=== PATIENT | female | born 1945 | race Caucasian/White ===

== ENCOUNTER 2024-08-01 16:44 | Inpatient (IN) | payer MEDICARE, OTHER ==
[~2024-08-01] VITALS: Ht 170.2 cm; Wt 73.9 kg
[2024-08-01 17:37] LABS: BASOPHILS # (AUTO) 0.1 K/uL (0.0-0.2); BASOPHILS % (AUTO) 0.8 % (0.0-2.0); EOSINOPHILS # (AUTO) 0.1 K/uL (0.0-0.7); HEMATOCRIT 36 % (33-45); HEMOGLOBIN 11.8 g/dL (11.5-14.8); LYMPHOCYTES # (AUTO) 3.4 K/uL (0.8-4.8); LYMPHOCYTES % (AUTO) 26.4 % (20.0-44.0); MEAN CORPUSCULAR HEMOGLOBIN 31 PG (26.0-33.0); MEAN CORPUSCULAR HGB CONC 33 g/dl (31.0-36.0); MEAN CORPUSCULAR VOLUME 95 fL (82-100); MONOCYTES # (AUTO) 1.3 K/uL (0.1-1.30); MONOCYTES % (AUTO) 10.2 % (2.0-12.0); NEUTROPHILS % (AUTO) 61.6 % (43.0-81.0); PLATELET COUNT (AUTO) 575 K/uL (150-450); RED BLOOD CELL COUNT(AUTO) 3.85 MIL/uL (4.0-5.2)
[2024-08-01] MEDS ORDERED: AMLO-212 PO (17:40)
[2024-08-01] MEDS ORDERED: ASPI-1169 PO (17:40)
[2024-08-01] MEDS ORDERED: POLY17PO4 PO (17:40)
[2024-08-01] MEDS ORDERED: ATOR40TA PO (17:40)
[2024-08-01] MEDS ORDERED: ALBU2.5V13 NEB (17:40)
[2024-08-01] MEDS ORDERED: FAMO20TA8 PO (17:40)
[2024-08-01] MEDS ORDERED: LORA-258 PO (17:40)
[2024-08-01] MEDS ORDERED: VALS160T29 PO (17:40)
[2024-08-01] MEDS ORDERED: MULT-213 PO (17:40)
[2024-08-01] MEDS ORDERED: CHLO25TA2 PO (17:40)
[2024-08-01] MEDS ORDERED: ACET325T53 PO (17:40)
[2024-08-01] MEDS ORDERED: TRAM50TA2 PO (17:40)
[2024-08-01] MEDS ORDERED: ACET-73 PO (17:40)
[2024-08-01] MEDS ORDERED: IPRA0.2S49 IH (17:40)
[2024-08-01] MEDS ORDERED: CHOL100043 PO (17:40)
[2024-08-01] MEDS ORDERED: NEBI10TA2 PO (17:40)
[2024-08-01] MEDS ORDERED: COLL30OI TP (17:40)
[2024-08-01] MEDS ORDERED: HYDR-4075 PO (17:40)
[2024-08-01 17:45] LABS: ERYTHROCYTE SEDIMENTATION RATE 74 MM/HR (0-30)
[2024-08-01 17:47] LABS: CALCIUM, SERUM 9.6 mg/dL (8.5-10.1); CREATININE 0.7 mg/dL (0.6-1.3)
[2024-08-01 17:48] LABS: C-REACTIVE PROTEIN 2.36 mg/dL (0.0-0.30)
[2024-08-01 17:52] LABS: INR 1.03 (0.91-1.10); PARTIAL THROMBOPLASTIN TIME 32.1 SEC (24.3-34.3); PROTHROMBIN TIME 10.9 SECS (9.2-11.1)
[2024-08-01] MEDS ORDERED: MAG HYDROX/AL HYDROX/SIMETH 30 ML UDC PO PRN (18:30)
[2024-08-01] MEDS ORDERED: Z GUARD REMEDY 4 OZ OINT TP PRN (18:30)
[2024-08-01] MEDS ORDERED: MAGNESIUM HYDROXIDE 30 ML UDC PO PRN (18:30)
[2024-08-01] MEDS: VANCOMYCIN HCL 1.25 GM in IV D5W 260 ML IV ONE (18:30)
[2024-08-01] MEDS: VANCOMYCIN HCL 1.25 GM in IV D5W 250 ML IV SCH (19:52)
[2024-08-01 20:00] VITALS: BP 141/58; TEMP 98.1; O2SAT 95
[2024-08-01] MEDS: ZOSYN IVPB 3.375 G in IV D5W 50ml IV SCH (21:16)
[2024-08-01] MEDS: ENOXAPARIN SODIUM 40 MG/0.4 ML DISP.SYRIN SQ SCH (21:16)
[2024-08-02] MEDS: IV D5/0.45 NACL 1,000 ML IV PRN (02:07)
[2024-08-02 04:00] VITALS: BP 125/85; TEMP 98.1; O2SAT 93
[2024-08-02 06:52] LABS: CALCIUM, SERUM 9.1 mg/dL (8.5-10.1); CREATININE 0.7 mg/dL (0.6-1.3); MAGNESIUM 1.9 mg/dL (1.8-2.4); PHOSPHORUS 3.6 mg/dL (2.5-4.9); POTASSIUM 3.6 mmol/L (3.5-5.1)
[2024-08-02 06:55] LABS: BASOPHILS # (AUTO) 0.1 K/uL (0.0-0.2); BASOPHILS % (AUTO) 0.4 % (0.0-2.0); EOSINOPHILS # (AUTO) 0.1 K/uL (0.0-0.7); EOSINOPHILS % (AUTO) 0.8 % (0.0-6.0); HEMATOCRIT 36 % (33-45); HEMOGLOBIN 11.8 g/dL (11.5-14.8); LYMPHOCYTES # (AUTO) 3.4 K/uL (0.8-4.8); MEAN CORPUSCULAR HEMOGLOBIN 31 PG (26.0-33.0); MEAN CORPUSCULAR HGB CONC 33 g/dl (31.0-36.0); MEAN CORPUSCULAR VOLUME 94 fL (82-100); MONOCYTES # (AUTO) 1.4 K/uL (0.1-1.30); NEUTROPHILS # (AUTO) 10.3 K/uL (1.8-8.9); NEUTROPHILS % (AUTO) 67.8 % (43.0-81.0); PLATELET COUNT (AUTO) 588 K/uL (150-450); RED BLOOD CELL COUNT(AUTO) 3.81 MIL/uL (4.0-5.2); RED CELL DISTRIBUTION WIDTH 15.7 % (11.5-15.0); WHITE BLOOD COUNT (AUTO) 15.2 K/uL (4.3-11.0)
[2024-08-02 07:28] LABS: THYROID STIMULATING HORMONE 1.24 uIU/mL (0.358-3.74)
[2024-08-02] MEDS: PANTOPRAZOLE 40 MG TABLET.DR PO SCH (07:30)
[2024-08-02] MEDS ORDERED: hydrALAZINE HCL 10 MG TABLET PO PRN (10:30)
[2024-08-02] MEDS ORDERED: ACETAMINOPHEN 325 MG TABLET PO PRN (10:30)
[2024-08-02] MEDS: VANCOMYCIN 750 MG in IV D5W 250 ML IV SCH (11:26)
[2024-08-02] MEDS: ACETAMINOPHEN ES 500 MG TABLET PO SCH (13:00)
[2024-08-02 15:47] LABS: EOSINOPHILS % (MANUAL) 2 % (0-4); LYMPHOCYTES % (MANUAL) 18 % (16-48); MONOCYTES % (MANUAL) 10 % (0-11.0); NEUTROPHILS % (MANUAL) 70 (42-76); PLATELET ESTIMATE INCREASED
[2024-08-02] MEDS: AMLODIPINE BESYLATE 5 MG TABLET PO SCH (17:00)
[2024-08-02] MEDS: METOPROLOL TARTRATE 50 MG TABLET PO SCH (17:00)
[2024-08-02] MEDS: LORAZEPAM 0.5 MG TABLET PO SCH (17:00)
[2024-08-02] MEDS: LOSARTAN POTASSIUM 50 MG TABLET PO SCH (17:00)
[2024-08-02 20:00] VITALS: BP 105/70; TEMP 98.5; O2SAT 95
[2024-08-02] MEDS: ATORVASTATIN 40 MG TABLET PO SCH (22:00)
[2024-08-03] VITALS (13 sets, daily range): BP systolic 120–122; BP diastolic 57–108; TEMP 98.1–99.3; O2SAT 94–99
[2024-08-03] MEDS: ALBUTEROL FS 2.5 MG/0.5 ML VIAL.NEB NEB SCH (01:49)
[2024-08-03] MEDS: CHOLECALCIFEROL 1,000 UNIT TABLET (VIT D3) PO SCH (09:00)
[2024-08-03] MEDS: POLYETHYLENE GLYCOL 3350 17 GM POWD.PACK PO SCH (09:00)
[2024-08-03] MEDS: MULTIVIT W/MINERALS 1 TAB TABLET PO SCH (09:00)
[2024-08-03] MEDS: HYDROCHLOROTHIAZIDE 25 MG TABLET PO SCH (09:00)
[2024-08-03] MEDS: ASPIRIN 81 MG TAB.CHEW PO SCH (09:00)
[2024-08-03] MEDS: THERAHONEY GEL 1.5 OZ TUBE TP SCH (09:09)
[2024-08-03 11:35] LABS: CALCIUM, SERUM 9.4 mg/dL (8.5-10.1); CREATININE 0.8 mg/dL (0.6-1.3); POTASSIUM 3.6 mmol/L (3.5-5.1)
[2024-08-03] MEDS ORDERED: LORAZEPAM 4 MG/ML VIAL IV ONE (17:00)
[2024-08-03] MEDS: OLANZAPINE 10 MG VIAL IM ONE (17:42)
[2024-08-03] MEDS ORDERED: IOHEXOL-350 100 ML VIAL IV ONE (18:36)
[2024-08-03] MEDS: DOXYCYCLINE HYCLATE (100 MG) 100 MG TABLET PO SCH (21:13)
[2024-08-04] VITALS (8 sets, daily range): BP systolic 102–120; BP diastolic 63–75; TEMP 98.2–98.6; O2SAT 93–100
[2024-08-04 07:25] LABS: CALCIUM, SERUM 8.9 mg/dL (8.5-10.1); CREATININE 0.6 mg/dL (0.6-1.3); PHOSPHORUS 3.4 mg/dL (2.5-4.9); POTASSIUM 4.1 mmol/L (3.5-5.1)
[2024-08-04 07:28] LABS: BASOPHILS # (AUTO) 0.1 K/uL (0.0-0.2); BASOPHILS % (AUTO) 0.5 % (0.0-2.0); EOSINOPHILS # (AUTO) 0.1 K/uL (0.0-0.7); EOSINOPHILS % (AUTO) 0.9 % (0.0-6.0); HEMATOCRIT 37 % (33-45); LYMPHOCYTES # (AUTO) 3.5 K/uL (0.8-4.8); LYMPHOCYTES % (AUTO) 29.1 % (20.0-44.0); MEAN CORPUSCULAR HEMOGLOBIN 31 PG (26.0-33.0); MEAN CORPUSCULAR HGB CONC 32 g/dl (31.0-36.0); MEAN CORPUSCULAR VOLUME 96 fL (82-100); MONOCYTES # (AUTO) 1.7 K/uL (0.1-1.30); MONOCYTES % (AUTO) 13.6 % (2.0-12.0); NEUTROPHILS # (AUTO) 6.8 K/uL (1.8-8.9); NEUTROPHILS % (AUTO) 55.9 % (43.0-81.0); PLATELET COUNT (AUTO) 530 K/uL (150-450); RED BLOOD CELL COUNT(AUTO) 3.89 MIL/uL (4.0-5.2); RED CELL DISTRIBUTION WIDTH 16.3 % (11.5-15.0); WHITE BLOOD COUNT (AUTO) 12.2 K/uL (4.3-11.0)
[2024-08-04] MEDS: ENSURE ENLIVE 237 ML LIQUID (VANILLA) PO SCH (17:00)
[2024-08-05] VITALS (11 sets, daily range): BP systolic 109–125; BP diastolic 59–62; TEMP 97.2–97.7; O2SAT 93–100
[2024-08-05 06:44] LABS: BASOPHILS # (AUTO) 0.1 K/uL (0.0-0.2); BASOPHILS % (AUTO) 0.5 % (0.0-2.0); EOSINOPHILS # (AUTO) 0.1 K/uL (0.0-0.7); EOSINOPHILS % (AUTO) 0.7 % (0.0-6.0); HEMATOCRIT 36 % (33-45); HEMOGLOBIN 11.7 g/dL (11.5-14.8); LYMPHOCYTES # (AUTO) 3.5 K/uL (0.8-4.8); LYMPHOCYTES % (AUTO) 25.1 % (20.0-44.0); MEAN CORPUSCULAR HEMOGLOBIN 32 PG (26.0-33.0); MEAN CORPUSCULAR HGB CONC 33 g/dl (31.0-36.0); MEAN CORPUSCULAR VOLUME 96 fL (82-100); MONOCYTES # (AUTO) 1.5 K/uL (0.1-1.30); MONOCYTES % (AUTO) 10.8 % (2.0-12.0); NEUTROPHILS # (AUTO) 8.9 K/uL (1.8-8.9); NEUTROPHILS % (AUTO) 62.9 % (43.0-81.0); PLATELET COUNT (AUTO) 536 K/uL (150-450); RED BLOOD CELL COUNT(AUTO) 3.71 MIL/uL (4.0-5.2); RED CELL DISTRIBUTION WIDTH 16.3 % (11.5-15.0); WHITE BLOOD COUNT (AUTO) 14.1 K/uL (4.3-11.0)
[2024-08-05 08:28] LABS: CALCIUM, SERUM 9.1 mg/dL (8.5-10.1); CREATININE 0.7 mg/dL (0.6-1.3); PHOSPHORUS 3.9 mg/dL (2.5-4.9); POTASSIUM 3.9 mmol/L (3.5-5.1)
[2024-08-05] MEDS: IPRATROPIUM NEB FS 0.5 MG/2.5 ML AMPUL.NEB IH PRN (09:17)
[2024-08-06] VITALS (14 sets, daily range): BP systolic 91–125; BP diastolic 62–69; TEMP 97.2–98.6; O2SAT 95–100
[2024-08-06 06:36] LABS: CALCIUM, SERUM 9.1 mg/dL (8.5-10.1); CREATININE 0.9 mg/dL (0.6-1.3); PHOSPHORUS 2.8 mg/dL (2.5-4.9)
[2024-08-06 06:37] LABS: BASOPHILS # (AUTO) 0.1 K/uL (0.0-0.2); BASOPHILS % (AUTO) 0.7 % (0.0-2.0); EOSINOPHILS # (AUTO) 0.2 K/uL (0.0-0.7); EOSINOPHILS % (AUTO) 1.3 % (0.0-6.0); HEMATOCRIT 35 % (33-45); HEMOGLOBIN 11.8 g/dL (11.5-14.8); LYMPHOCYTES % (AUTO) 24.7 % (20.0-44.0); MEAN CORPUSCULAR HEMOGLOBIN 32 PG (26.0-33.0); MEAN CORPUSCULAR HGB CONC 33 g/dl (31.0-36.0); MEAN CORPUSCULAR VOLUME 97 fL (82-100); MONOCYTES # (AUTO) 1.6 K/uL (0.1-1.30); MONOCYTES % (AUTO) 13.2 % (2.0-12.0); NEUTROPHILS # (AUTO) 7.3 K/uL (1.8-8.9); NEUTROPHILS % (AUTO) 60.1 % (43.0-81.0); PLATELET COUNT (AUTO) 453 K/uL (150-450); RED BLOOD CELL COUNT(AUTO) 3.64 MIL/uL (4.0-5.2); RED CELL DISTRIBUTION WIDTH 16.1 % (11.5-15.0); WHITE BLOOD COUNT (AUTO) 12.1 K/uL (4.3-11.0)
[2024-08-06] MEDS: POTASSIUM CHLORIDE 20 MEQ TAB.PRT.SR PO SCH (10:15)
[2024-08-06 12:03] LABS: LYMPHOCYTES % (MANUAL) 21 % (16-48); MONOCYTES % (MANUAL) 6 % (0-11.0); NEUTROPHILS % (MANUAL) 73 (42-76); PLATELET ESTIMATE INCREASED
[2024-08-06] MEDS: TRAMADOL HCL 50 MG TABLET PO PRN (21:27)
[2024-08-07] VITALS (17 sets, daily range): BP systolic 91–121; BP diastolic 50–78; TEMP 97.9–99.3; O2SAT 94–100
[2024-08-07 06:45] LABS: BASOPHILS # (AUTO) 0.1 K/uL (0.0-0.2); BASOPHILS % (AUTO) 0.8 % (0.0-2.0); EOSINOPHILS # (AUTO) 0.2 K/uL (0.0-0.7); EOSINOPHILS % (AUTO) 1.2 % (0.0-6.0); HEMATOCRIT 33 % (33-45); LYMPHOCYTES # (AUTO) 3.1 K/uL (0.8-4.8); LYMPHOCYTES % (AUTO) 23.2 % (20.0-44.0); MEAN CORPUSCULAR HEMOGLOBIN 32 PG (26.0-33.0); MEAN CORPUSCULAR HGB CONC 34 g/dl (31.0-36.0); MEAN CORPUSCULAR VOLUME 95 fL (82-100); MONOCYTES # (AUTO) 1.5 K/uL (0.1-1.30); MONOCYTES % (AUTO) 11.1 % (2.0-12.0); NEUTROPHILS # (AUTO) 8.5 K/uL (1.8-8.9); NEUTROPHILS % (AUTO) 63.7 % (43.0-81.0); PLATELET COUNT (AUTO) 469 K/uL (150-450); RED BLOOD CELL COUNT(AUTO) 3.47 MIL/uL (4.0-5.2); WHITE BLOOD COUNT (AUTO) 13.4 K/uL (4.3-11.0)
[2024-08-07 07:05] LABS: CALCIUM, SERUM 8.9 mg/dL (8.5-10.1); CREATININE 0.7 mg/dL (0.6-1.3); MAGNESIUM 1.8 mg/dL (1.8-2.4); PHOSPHORUS 2.7 mg/dL (2.5-4.9); POTASSIUM 3.1 mmol/L (3.5-5.1)
[2024-08-07] MEDS: POTASSIUM CHLORIDE 20 MEQ TAB.PRT.SR PO SCH (10:31)
[2024-08-07] MEDS: PROSOURCE / PROSTAT (PYXIS) 30 ML UDC PO SCH (17:00)
[2024-08-07] MEDS: ACETAMINOPHEN 325 MG TABLET PO PRN (18:29)
[2024-08-07] MEDS: ALBUTEROL FS 2.5 MG/0.5 ML VIAL.NEB NEB SCH (23:35)
[2024-08-08] VITALS (17 sets, daily range): BP systolic 109–116; BP diastolic 60–94; TEMP 97.7–98.8; O2SAT 93–100
[2024-08-08 07:30] LABS: BASOPHILS # (AUTO) 0.1 K/uL (0.0-0.2); BASOPHILS % (AUTO) 0.6 % (0.0-2.0); EOSINOPHILS # (AUTO) 0.2 K/uL (0.0-0.7); EOSINOPHILS % (AUTO) 2.2 % (0.0-6.0); HEMATOCRIT 32 % (33-45); HEMOGLOBIN 10.8 g/dL (11.5-14.8); LYMPHOCYTES # (AUTO) 3.8 K/uL (0.8-4.8); LYMPHOCYTES % (AUTO) 33.1 % (20.0-44.0); MEAN CORPUSCULAR HEMOGLOBIN 32 PG (26.0-33.0); MEAN CORPUSCULAR HGB CONC 33 g/dl (31.0-36.0); MEAN CORPUSCULAR VOLUME 95 fL (82-100); MONOCYTES # (AUTO) 1.3 K/uL (0.1-1.30); NEUTROPHILS % (AUTO) 53.1 % (43.0-81.0); PLATELET COUNT (AUTO) 485 K/uL (150-450); RED BLOOD CELL COUNT(AUTO) 3.39 MIL/uL (4.0-5.2); RED CELL DISTRIBUTION WIDTH 16.1 % (11.5-15.0); WHITE BLOOD COUNT (AUTO) 11.4 K/uL (4.3-11.0)
[2024-08-08 07:44] LABS: INR 1.05 (0.91-1.10); PROTHROMBIN TIME 11.1 SECS (9.2-11.1)
[2024-08-08 07:50] LABS: CREATININE 0.6 mg/dL (0.6-1.3); POTASSIUM 3.5 mmol/L (3.5-5.1)
[2024-08-08 08:07] LABS: MAGNESIUM 1.7 mg/dL (1.8-2.4); PHOSPHORUS 3.2 mg/dL (2.5-4.9)
[2024-08-08] MEDS: HYDROMORPHONE 1 MG/1 ML DISP.SYRIN IV PRN (09:21)
[2024-08-08] MEDS: Magnesium 1GM/D5W 100ML PREMIX 100 ML IV SCH (14:14)
[2024-08-08] MEDS: ONDANSETRON HCL/PF 4 MG/2 ML VIAL IVP PRN (16:50)
[2024-08-09] VITALS (13 sets, daily range): BP systolic 90–132; BP diastolic 60–100; TEMP 98.5–98.8; O2SAT 92–97
[2024-08-09 06:56] LABS: BASOPHILS # (AUTO) 0.1 K/uL (0.0-0.2); BASOPHILS % (AUTO) 0.6 % (0.0-2.0); EOSINOPHILS # (AUTO) 0.2 K/uL (0.0-0.7); EOSINOPHILS % (AUTO) 1.7 % (0.0-6.0); HEMATOCRIT 32 % (33-45); HEMOGLOBIN 10.6 g/dL (11.5-14.8); LYMPHOCYTES % (AUTO) 28.4 % (20.0-44.0); MEAN CORPUSCULAR HEMOGLOBIN 32 PG (26.0-33.0); MEAN CORPUSCULAR HGB CONC 33 g/dl (31.0-36.0); MEAN CORPUSCULAR VOLUME 96 fL (82-100); MONOCYTES # (AUTO) 1.4 K/uL (0.1-1.30); MONOCYTES % (AUTO) 9.9 % (2.0-12.0); NEUTROPHILS # (AUTO) 8.4 K/uL (1.8-8.9); NEUTROPHILS % (AUTO) 59.4 % (43.0-81.0); PLATELET COUNT (AUTO) 511 K/uL (150-450); RED BLOOD CELL COUNT(AUTO) 3.35 MIL/uL (4.0-5.2); RED CELL DISTRIBUTION WIDTH 16.2 % (11.5-15.0); WHITE BLOOD COUNT (AUTO) 14.1 K/uL (4.3-11.0)
[2024-08-09 07:29] LABS: CALCIUM, SERUM 9.4 mg/dL (8.5-10.1); CREATININE 0.8 mg/dL (0.6-1.3); POTASSIUM 3.7 mmol/L (3.5-5.1)
[2024-08-09] MEDS: ENSURE ENLIVE 237 ML LIQUID (VANILLA) PO SCH (13:33)
[2024-08-09 16:13] LABS: APPEARANCE,URINE CLEAR (CLEAR); BILIRUBIN,URINE NEGATIVE (NEGATIVE); BLOOD, URINE TRACE-INTA Ery/uL (NEGATIVE); COLOR,URINE YELLOW (YELLOW); KETONES,URINE NEGATIVE (NEGATIVE); LEUKOCYTE ESTERASE ,URINE 1+ (NEGATIVE); NITRITE, URINE NEGATIVE (NEGATIVE); PROTEIN,URINE 2+ mg/dl (NEGATIVE); UGLUCOSE NEGATIVE (NEGATIVE); UROBILINOGEN,URINE 0.2 EU/dL (0.2)
[2024-08-09 16:23] LABS: ADD URINE CULTURE YES; BACTERIA,URINE 1+ /HPF (None Seen); SQUAMOUS EPITHELIAL CELL,UR 0-2 /HPF (None Seen); URINE AMORPHOUS URATE Few /HPF (None Seen); YEAST,URINE Many /HPF (None Seen)
[2024-08-09 16:24] LABS: CALCIUM OXALATE CRYSTALS,UR Few /HPF (None Seen); HYALINE CASTS, URINE Few /LPF (None Seen)
[2024-08-10] VITALS (8 sets, daily range): BP systolic 91–130; BP diastolic 55–65; TEMP 98.1–99.3; O2SAT 93–98
[2024-08-10 08:05] LABS: BASOPHILS # (AUTO) 0.1 K/uL (0.0-0.2); BASOPHILS % (AUTO) 0.4 % (0.0-2.0); EOSINOPHILS # (AUTO) 0.2 K/uL (0.0-0.7); EOSINOPHILS % (AUTO) 1.3 % (0.0-6.0); HEMATOCRIT 33 % (33-45); HEMOGLOBIN 10.7 g/dL (11.5-14.8); LYMPHOCYTES # (AUTO) 3.5 K/uL (0.8-4.8); LYMPHOCYTES % (AUTO) 22.9 % (20.0-44.0); MEAN CORPUSCULAR HEMOGLOBIN 32 PG (26.0-33.0); MEAN CORPUSCULAR HGB CONC 33 g/dl (31.0-36.0); MEAN CORPUSCULAR VOLUME 96 fL (82-100); MONOCYTES # (AUTO) 1.5 K/uL (0.1-1.30); MONOCYTES % (AUTO) 9.9 % (2.0-12.0); NEUTROPHILS % (AUTO) 65.5 % (43.0-81.0); PLATELET COUNT (AUTO) 496 K/uL (150-450); RED BLOOD CELL COUNT(AUTO) 3.41 MIL/uL (4.0-5.2); RED CELL DISTRIBUTION WIDTH 16.4 % (11.5-15.0); WHITE BLOOD COUNT (AUTO) 15.2 K/uL (4.3-11.0)
[2024-08-10 08:06] LABS: INR 1.03 (0.91-1.10); PARTIAL THROMBOPLASTIN TIME 31.9 SEC (24.3-34.3); PROTHROMBIN TIME 10.9 SECS (9.2-11.1)
[2024-08-10 08:12] LABS: CREATININE 0.7 mg/dL (0.6-1.3); POTASSIUM 3.8 mmol/L (3.5-5.1)
[2024-08-10] MEDS: AMLODIPINE BESYLATE 5 MG TABLET PO SCH (09:00)
[2024-08-10] MEDS ORDERED: IODIXANOL 150 ML IV ONE (12:05)
[2024-08-10] MEDS ORDERED: LIDOCAINE HCL/MPF 1% 30 ML VIAL IJ ONE (12:06)
[2024-08-10] MEDS ORDERED: MIDAZOLAM HCL 2 MG/2ML VIAL ONE (12:53)
[2024-08-10] MEDS ORDERED: FENTANYL PF 100MCG/2ML AMPUL ONE (12:53)
[2024-08-10] MEDS ORDERED: diphenhydrAMINE HCL 50 MG/ML VIAL ONE (13:02)
[2024-08-11 04:00] VITALS: BP 125/56; TEMP 98.4; O2SAT 97
[2024-08-11 07:07] LABS: BASOPHILS # (AUTO) 0.1 K/uL (0.0-0.2); BASOPHILS % (AUTO) 0.6 % (0.0-2.0); EOSINOPHILS # (AUTO) 0.2 K/uL (0.0-0.7); EOSINOPHILS % (AUTO) 1.4 % (0.0-6.0); HEMATOCRIT 33 % (33-45); HEMOGLOBIN 10.6 g/dL (11.5-14.8); LYMPHOCYTES # (AUTO) 3.3 K/uL (0.8-4.8); LYMPHOCYTES % (AUTO) 30.4 % (20.0-44.0); MEAN CORPUSCULAR HEMOGLOBIN 31 PG (26.0-33.0); MEAN CORPUSCULAR HGB CONC 33 g/dl (31.0-36.0); MEAN CORPUSCULAR VOLUME 96 fL (82-100); MONOCYTES # (AUTO) 1.1 K/uL (0.1-1.30); MONOCYTES % (AUTO) 10.3 % (2.0-12.0); NEUTROPHILS # (AUTO) 6.2 K/uL (1.8-8.9); NEUTROPHILS % (AUTO) 57.3 % (43.0-81.0); PLATELET COUNT (AUTO) 463 K/uL (150-450); RED BLOOD CELL COUNT(AUTO) 3.38 MIL/uL (4.0-5.2); RED CELL DISTRIBUTION WIDTH 16.6 % (11.5-15.0); WHITE BLOOD COUNT (AUTO) 10.8 K/uL (4.3-11.0)
[2024-08-11 07:28] LABS: CALCIUM, SERUM 8.7 mg/dL (8.5-10.1); CREATININE 0.6 mg/dL (0.6-1.3); POTASSIUM 3.7 mmol/L (3.5-5.1)
[2024-08-11 07:34] VITALS: O2SAT 99
[2024-08-11 08:00] VITALS: BP 123/62; TEMP 98.7; O2SAT 99
[2024-08-11 16:00] VITALS: BP 121/66; TEMP 98.6; O2SAT 98
[2024-08-11] MEDS: ENSURE ENLIVE CHOC 237 ML CAN PO SCH (17:00)
[2024-08-11 19:09] VITALS: O2SAT 97
[2024-08-11 20:00] VITALS: BP 119/53; TEMP 99.1; O2SAT 96
[2024-08-11] MEDS: LORAZEPAM 1 MG TABLET PO ONE (20:53)
[2024-08-11] MEDS: MIRTAZAPINE 15 MG TABLET PO SCH (21:26)
[2024-08-12] VITALS (8 sets, daily range): BP systolic 106–148; BP diastolic 66–100; TEMP 98.1–98.9; O2SAT 95–100
[2024-08-12 07:08] LABS: BASOPHILS # (AUTO) 0.1 K/uL (0.0-0.2); BASOPHILS % (AUTO) 0.6 % (0.0-2.0); EOSINOPHILS # (AUTO) 0.2 K/uL (0.0-0.7); EOSINOPHILS % (AUTO) 1.7 % (0.0-6.0); HEMATOCRIT 31 % (33-45); HEMOGLOBIN 10.1 g/dL (11.5-14.8); LYMPHOCYTES # (AUTO) 3.5 K/uL (0.8-4.8); LYMPHOCYTES % (AUTO) 31.8 % (20.0-44.0); MEAN CORPUSCULAR HEMOGLOBIN 32 PG (26.0-33.0); MEAN CORPUSCULAR HGB CONC 33 g/dl (31.0-36.0); MEAN CORPUSCULAR VOLUME 96 fL (82-100); MONOCYTES # (AUTO) 1.2 K/uL (0.1-1.30); MONOCYTES % (AUTO) 11.1 % (2.0-12.0); NEUTROPHILS # (AUTO) 6.1 K/uL (1.8-8.9); NEUTROPHILS % (AUTO) 54.8 % (43.0-81.0); PLATELET COUNT (AUTO) 423 K/uL (150-450); RED BLOOD CELL COUNT(AUTO) 3.18 MIL/uL (4.0-5.2); RED CELL DISTRIBUTION WIDTH 16.6 % (11.5-15.0)
[2024-08-12 07:29] LABS: CALCIUM, SERUM 8.5 mg/dL (8.5-10.1); CREATININE 0.5 mg/dL (0.6-1.3); POTASSIUM 3.5 mmol/L (3.5-5.1)
[2024-08-12] MEDS ORDERED: TRAMADOL HCL 50 MG TABLET PO PRN (13:30)
[2024-08-12] MEDS: QUETIAPINE FUMARATE 25 MG TABLET PO SCH (17:10)
[2024-08-12] MEDS: ZOLPIDEM TARTRATE 5 MG TABLET PO PRN (20:58)
[2024-08-12] MEDS ORDERED: MICAFUNGIN SODIUM 100 MG VIAL IV ONE (22:36)
[2024-08-12] MEDS: MICAFUNGIN SODIUM 100 MG in IV NS 0.9% 100 ML IV SCH (22:38)
[2024-08-13] VITALS (18 sets, daily range): BP systolic 92–158; BP diastolic 55–99; TEMP 97.8–99; O2SAT 90–100
[2024-08-13 06:41] LABS: BASOPHILS # (AUTO) 0.1 K/uL (0.0-0.2); BASOPHILS % (AUTO) 1.2 % (0.0-2.0); EOSINOPHILS # (AUTO) 0.4 K/uL (0.0-0.7); EOSINOPHILS % (AUTO) 3.4 % (0.0-6.0); HEMATOCRIT 33 % (33-45); HEMOGLOBIN 10.8 g/dL (11.5-14.8); LYMPHOCYTES # (AUTO) 3.7 K/uL (0.8-4.8); MEAN CORPUSCULAR HEMOGLOBIN 31 PG (26.0-33.0); MEAN CORPUSCULAR HGB CONC 33 g/dl (31.0-36.0); MEAN CORPUSCULAR VOLUME 95 fL (82-100); MONOCYTES # (AUTO) 1.1 K/uL (0.1-1.30); MONOCYTES % (AUTO) 10.1 % (2.0-12.0); NEUTROPHILS # (AUTO) 5.6 K/uL (1.8-8.9); NEUTROPHILS % (AUTO) 51.3 % (43.0-81.0); PLATELET COUNT (AUTO) 459 K/uL (150-450); RED BLOOD CELL COUNT(AUTO) 3.45 MIL/uL (4.0-5.2); RED CELL DISTRIBUTION WIDTH 16.9 % (11.5-15.0); WHITE BLOOD COUNT (AUTO) 10.9 K/uL (4.3-11.0)
[2024-08-13 07:16] LABS: CALCIUM, SERUM 8.6 mg/dL (8.5-10.1); CREATININE 0.6 mg/dL (0.6-1.3); POTASSIUM 3.6 mmol/L (3.5-5.1)
[2024-08-13 10:15] LABS: INR 1.04 (0.91-1.10)
[2024-08-13] MEDS ORDERED: ANESTHESIA TRAY IN PYXIS 1 EA TRAY MC ONE ×2 (12:44→16:04)
[2024-08-13] MEDS ORDERED: IV NS 0.9% 500 ML IV ONE (13:08)
[2024-08-13] MEDS ORDERED: IODIXANOL 150 ML IV ONE (13:09)
[2024-08-13] MEDS ORDERED: LIDOCAINE HCL/MPF 1% 30 ML VIAL IJ ONE (13:09)
[2024-08-13] MEDS ORDERED: IV SET PRIMARY PUMP SET 1 EA INFUS.SET MC ONE (13:09)
[2024-08-13] MEDS ORDERED: LIDOCAINE HCL/PF 1% 30 ML SDV ONE (13:59)
[2024-08-13] MEDS ORDERED: MIDAZOLAM HCL 2 MG/2ML VIAL ONE (14:01)
[2024-08-13] MEDS ORDERED: FENTANYL PF 100MCG/2ML AMPUL ONE (14:01)
[2024-08-13] MEDS ORDERED: HEPARIN SODIUM, PORCINE 5000 UNITS/1 ML VIAL ONE (14:36)
[2024-08-13] MEDS ORDERED: HEPARIN SODIUM, PORCINE 1,000 UNIT/ML VIAL ONE ×2 (14:36→14:55)
[2024-08-13] MEDS: IV NS 0.9% 1,000 ML BAG IV ONE (18:22)
[2024-08-13] MEDS: LOSARTAN POTASSIUM 50 MG TABLET PO SCH (20:52)
[2024-08-13] MEDS: CLOPIDOGREL BISULFATE 300 MG TABLET PO ONE (20:53)
[2024-08-13] MEDS: METOPROLOL TARTRATE 50 MG TABLET PO SCH (20:53)
[2024-08-13] MEDS: QUETIAPINE FUMARATE 25 MG TABLET PO SCH (20:54)
[2024-08-13] MEDS: LORAZEPAM 0.5 MG TABLET PO SCH (20:55)
[2024-08-14] VITALS (35 sets, daily range): BP systolic 62–137; BP diastolic 38–81; TEMP 98–99; O2SAT 90–99
[2024-08-14 04:12] LABS: BASOPHILS # (AUTO) 0.1 K/uL (0.0-0.2); BASOPHILS % (AUTO) 0.6 % (0.0-2.0); EOSINOPHILS # (AUTO) 0.1 K/uL (0.0-0.7); EOSINOPHILS % (AUTO) 0.5 % (0.0-6.0); HEMATOCRIT 29 % (33-45); HEMOGLOBIN 9.6 g/dL (11.5-14.8); LYMPHOCYTES # (AUTO) 2.8 K/uL (0.8-4.8); LYMPHOCYTES % (AUTO) 23.2 % (20.0-44.0); MEAN CORPUSCULAR HEMOGLOBIN 32 PG (26.0-33.0); MEAN CORPUSCULAR HGB CONC 33 g/dl (31.0-36.0); MEAN CORPUSCULAR VOLUME 96 fL (82-100); MONOCYTES # (AUTO) 1.3 K/uL (0.1-1.30); MONOCYTES % (AUTO) 10.3 % (2.0-12.0); NEUTROPHILS % (AUTO) 65.4 % (43.0-81.0); PLATELET COUNT (AUTO) 400 K/uL (150-450); RED BLOOD CELL COUNT(AUTO) 2.99 MIL/uL (4.0-5.2); RED CELL DISTRIBUTION WIDTH 16.5 % (11.5-15.0); WHITE BLOOD COUNT (AUTO) 12.1 K/uL (4.3-11.0)
[2024-08-14 04:21] LABS: CALCIUM, SERUM 8.3 mg/dL (8.5-10.1); CREATININE 0.6 mg/dL (0.6-1.3); POTASSIUM 3.2 mmol/L (3.5-5.1)
[2024-08-14 04:25] LABS: MAGNESIUM 1.8 mg/dL (1.8-2.4); PHOSPHORUS 3.6 mg/dL (2.5-4.9)
[2024-08-14] MEDS: PANTOPRAZOLE 40 MG TABLET.DR PO SCH (09:00)
[2024-08-14] MEDS ORDERED: ASPIRIN 81 MG TAB.CHEW PO SCH (09:00)
[2024-08-14] MEDS: CLOPIDOGREL BISULFATE 75 MG TABLET PO SCH (09:00)
[2024-08-14] MEDS: POTASSIUM CHLORIDE 20 MEQ TAB.PRT.SR PO SCH (09:30)
[2024-08-14] MEDS: ENOXAPARIN SODIUM 40 MG/0.4 ML DISP.SYRIN SQ SCH (17:52)
[2024-08-15] VITALS: BP 137/74; TEMP 98.8; O2SAT 98
[2024-08-15 04:00] VITALS: BP 125/74; TEMP 98.2; O2SAT 97
[2024-08-15 07:13] LABS: BASOPHILS # (AUTO) 0.1 K/uL (0.0-0.2); BASOPHILS % (AUTO) 0.7 % (0.0-2.0); EOSINOPHILS # (AUTO) 0.2 K/uL (0.0-0.7); EOSINOPHILS % (AUTO) 1.7 % (0.0-6.0); HEMATOCRIT 31 % (33-45); HEMOGLOBIN 10.4 g/dL (11.5-14.8); LYMPHOCYTES # (AUTO) 3.3 K/uL (0.8-4.8); MEAN CORPUSCULAR HEMOGLOBIN 32 PG (26.0-33.0); MEAN CORPUSCULAR HGB CONC 34 g/dl (31.0-36.0); MEAN CORPUSCULAR VOLUME 95 fL (82-100); MONOCYTES # (AUTO) 1.1 K/uL (0.1-1.30); MONOCYTES % (AUTO) 10.3 % (2.0-12.0); NEUTROPHILS # (AUTO) 5.9 K/uL (1.8-8.9); NEUTROPHILS % (AUTO) 56.3 % (43.0-81.0); PLATELET COUNT (AUTO) 427 K/uL (150-450); RED BLOOD CELL COUNT(AUTO) 3.22 MIL/uL (4.0-5.2); RED CELL DISTRIBUTION WIDTH 16.9 % (11.5-15.0); WHITE BLOOD COUNT (AUTO) 10.5 K/uL (4.3-11.0)
[2024-08-15 07:30] VITALS: O2SAT 99
[2024-08-15 07:34] LABS: ALBUMIN 1.9 g/dL (3.4-5.0); BILIRUBIN,TOTAL 0.4 mg/dL (0.2-1.0); CALCIUM, SERUM 8.7 mg/dL (8.5-10.1); CREATININE 0.6 mg/dL (0.6-1.3); MAGNESIUM 1.8 mg/dL (1.8-2.4); PHOSPHORUS 3.1 mg/dL (2.5-4.9); POTASSIUM 3.3 mmol/L (3.5-5.1); TOTAL PROTEIN, SERUM 5.2 g/dL (6.4-8.2)
[2024-08-15 07:41] VITALS: O2SAT 100
[2024-08-15 08:00] VITALS: BP 141/84; TEMP 98.3; O2SAT 97
[2024-08-15] MEDS: POTASSIUM CHLORIDE 20 MEQ TAB.PRT.SR PO SCH (10:53)
[2024-08-15 12:00] VITALS: BP 123/59; TEMP 98.5; O2SAT 97
== END 2024-08-15 16:21 | DRG 270 ==
LOC: ER 17:05 → MEDSG1 17:46 → ICU 08-13 16:04 → TELE1 08-14 13:02 → MEDSG1 08-15 11:57
PROVIDERS: ADMIT Student in an Organized Health Care Education/Training Program
PROC: B44LZZZ Ultrasonography of Femoral Artery (ICD-10-PCS; principal; 2024-08-13)
PROC: 04CL3ZZ Extirpation of Matter from Left Femoral Artery, Percutaneous Approach (ICD-10-PCS; 2024-08-13)
PROC: 047L3ZZ Dilation of Left Femoral Artery, Percutaneous Approach (ICD-10-PCS; 2024-08-13)
PROC: B410YZZ Fluoroscopy of Abdominal Aorta using Other Contrast (ICD-10-PCS; 2024-08-13)
DX: I70.268 Atherosclerosis of native arteries of extremities with gangrene, other extremity (principal); G93.41 Metabolic encephalopathy; F03.94 Unspecified dementia, unspecified severity, with anxiety; L03.116 Cellulitis of left lower limb; B37.49 Other urogenital candidiasis; D75.839 Thrombocytosis, unspecified; L97.529 Non-pressure chronic ulcer of other part of left foot with unspecified severity; M19.90 Unspecified osteoarthritis, unspecified site; E78.5 Hyperlipidemia, unspecified; F41.9 Anxiety disorder, unspecified; Z79.51 Long term (current) use of inhaled steroids; Z79.82 Long term (current) use of aspirin; E87.6 Hypokalemia; G89.4 Chronic pain syndrome; I10 Essential (primary) hypertension; J44.9 Chronic obstructive pulmonary disease, unspecified
CPT/HCPCS: 36415; 71045-TC; 73630-TC; 75625; 75630-TC; 80048-TC; 80053-TC; 80202-TC; 81001; 82962-TC; 83735-TC; 84100-TC; 84443-TC; 85025-TC; 85347; 85610-TC; 85652-TC; 85730-TC; 86140-TC; 87040-TC; 87081-TC; 87086-TC; 92526; 92611-TC; 93926-TC; 93971-TC; 94760-TC; 94762-TC; 94799-TC; A4223; C1894; G0378; J0690; J1171; J1200; J1644; J1650; J2248; J2250; J2405; J2543; J2704; J3010; J3371; J3475; J3490; J7030; J7040; J7050; J7060; Q9967

== ENCOUNTER 2025-03-05 15:13 | Inpatient (IN) | payer MEDICARE, OTHER ==
[~2025-03-05] VITALS: Ht 170.2 cm; Wt 66.7 kg
[~2025-03-05 15:13] MED LIST: ACET-73 PO; ACET325T53 PO; ALBU2.5V13 NEB; AMLO-212 PO; ASPI-1169 PO; ATOR40TA PO; CHLO25TA2 PO; CHOL100043 PO; COLL30OI TP; FAMO20TA8 PO; HYDR-4075 PO; IPRA0.2S49 IH; LORA-258 PO; MULT-213 PO; NEBI10TA2 PO; POLY17PO4 PO; TRAM50TA2 PO; VALS160T29 PO
[2025-03-05 15:59] LABS: CALCIUM, SERUM 8.2 mg/dL (8.5-10.1); CREATININE 0.6 mg/dL (0.6-1.3); SODIUM SERUM 141 mmol/L (136-145); UREA NITROGEN, BLOOD 24 mg/dL (7-18)
[2025-03-05 16:09] LABS: PLATELET COUNT (AUTO) 462 K/uL (150-450); RED BLOOD CELL COUNT(AUTO) 3.94 MIL/uL (4.0-5.2); RED CELL DISTRIBUTION WIDTH 20.2 % (11.5-15.0); WHITE BLOOD COUNT (AUTO) 11.7 K/uL (4.3-11.0)
[2025-03-05] MEDS ORDERED: LOSA100T31 PO (16:10)
[2025-03-05] MEDS ORDERED: METO50TA16 PO (16:10)
[2025-03-05] MEDS ORDERED: IPRA0.2S9 IH (16:10)
[2025-03-05] MEDS ORDERED: ASCO-352 PO (16:10)
[2025-03-05] MEDS ORDERED: HONE44PA TP (16:10)
[2025-03-05] MEDS ORDERED: ZINC220C6 PO (16:10)
[2025-03-05] MEDS ORDERED: ENOX40DI9 SQ (16:10)
[2025-03-05] MEDS ORDERED: QUET25TA PO (16:10)
[2025-03-05] MEDS ORDERED: AMIN30LI2 PO (16:10)
[2025-03-05] MEDS ORDERED: MAGN400O6 PO (16:10)
[2025-03-05] MEDS ORDERED: MIRT-90 PO (16:10)
[2025-03-05] MEDS ORDERED: MAG30ORA PO (16:10)
[2025-03-05] MEDS ORDERED: OMEP40CA21 PO (16:10)
[2025-03-05 16:12] LABS: ASPARTATE AMINOTRANSFERASE 19 U/L (15-37); NT-PRO BNP 2916 pg/mL (0-125); TOTAL PROTEIN, SERUM 6.1 g/dL (6.4-8.2)
[2025-03-05 18:08] VITALS: BP 156/74; TEMP 97.7; O2SAT 97
[2025-03-05] MEDS ORDERED: MAGNESIUM HYDROXIDE 30 ML UDC PO PRN ×2 (18:30)
[2025-03-05] MEDS ORDERED: Z GUARD REMEDY 4 OZ OINT TP PRN (18:30)
[2025-03-05] MEDS ORDERED: IPRATROPIUM NEB FS 0.5 MG/2.5 ML AMPUL.NEB IH PRN (18:30)
[2025-03-05] MEDS ORDERED: MAG HYDROX/AL HYDROX/SIMETH 30 ML UDC PO PRN ×2 (18:30)
[2025-03-05] MEDS ORDERED: ONDANSETRON HCL/PF 4 MG/2 ML VIAL IVP PRN (18:30)
[2025-03-05 19:58] VITALS: O2SAT 97
[2025-03-05] MEDS: ALBUTEROL FS 2.5 MG/0.5 ML VIAL.NEB NEB SCH (19:58)
[2025-03-05 20:13] VITALS: O2SAT 99
[2025-03-05] MEDS: ACETAMINOPHEN 325 MG TABLET PO PRN (20:34)
[2025-03-05] MEDS: IV NS 0.9% 1,000 ML IV PRN (20:35)
[2025-03-05] MEDS: LORAZEPAM 0.5 MG TABLET PO SCH (21:58)
[2025-03-05] MEDS: MIRTAZAPINE 15 MG TABLET PO SCH (21:58)
[2025-03-05] MEDS: METOPROLOL TARTRATE 50 MG TABLET PO SCH (22:02)
[2025-03-05 22:54] VITALS: O2SAT 97
[2025-03-05 23:09] VITALS: O2SAT 99
[2025-03-06] VITALS (13 sets, daily range): O2SAT 96–99
[2025-03-06 07:24] LABS: PLATELET COUNT (AUTO) 531 K/uL (150-450); RED BLOOD CELL COUNT(AUTO) 4.28 MIL/uL (4.0-5.2); RED CELL DISTRIBUTION WIDTH 18.9 % (11.5-15.0); WHITE BLOOD COUNT (AUTO) 13.4 K/uL (4.3-11.0)
[2025-03-06 07:29] LABS: CALCIUM, SERUM 9.2 mg/dL (8.5-10.1); CREATININE 0.6 mg/dL (0.6-1.3); PHOSPHORUS 3.7 mg/dL (2.5-4.9); SODIUM SERUM 146.0 mmol/L (136-145); UREA NITROGEN, BLOOD 16.0 mg/dL (7-18)
[2025-03-06] MEDS: PANTOPRAZOLE 40 MG TABLET.DR PO SCH (08:26)
[2025-03-06] MEDS: ASPIRIN 81 MG TAB.CHEW PO SCH (08:39)
[2025-03-06] MEDS: LOSARTAN POTASSIUM 50 MG TABLET PO SCH (08:40)
[2025-03-06] MEDS: AMLODIPINE BESYLATE 5 MG TABLET PO SCH (08:42)
[2025-03-06] MEDS: QUETIAPINE FUMARATE 25 MG TABLET PO SCH (08:42)
[2025-03-06] MEDS: POLYETHYLENE GLYCOL 3350 17 GM POWD.PACK PO SCH (08:42)
[2025-03-07] VITALS (15 sets, daily range): BP systolic 159–181; BP diastolic 89–100; TEMP 98.2–98.8; O2SAT 96–99
[2025-03-07 07:49] LABS: CALCIUM, SERUM 9.1 mg/dL (8.5-10.1); CREATININE 0.7 mg/dL (0.6-1.3); SODIUM SERUM 146.0 mmol/L (136-145); UREA NITROGEN, BLOOD 12.0 mg/dL (7-18)
[2025-03-07 07:57] LABS: PLATELET COUNT (AUTO) 544 K/uL (150-450); RED BLOOD CELL COUNT(AUTO) 4.17 MIL/uL (4.0-5.2); RED CELL DISTRIBUTION WIDTH 19.1 % (11.5-15.0); WHITE BLOOD COUNT (AUTO) 11.6 K/uL (4.3-11.0)
[2025-03-07] MEDS: TRAMADOL HCL 50 MG TABLET PO PRN (18:06)
[2025-03-08] VITALS (10 sets, daily range): BP systolic 159–162; BP diastolic 82–99; TEMP 98.1–98.8; O2SAT 98–99
== END 2025-03-08 13:12 | DRG 640 ==
LOC: ER 15:15 → MEDSG1 17:28
PROVIDERS: ADMIT Internal Medicine; ATTEND Internal Medicine
DX: E86.0 Dehydration (principal); G93.41 Metabolic encephalopathy; E44.0 Moderate protein-calorie malnutrition; W06.XXXA Fall from bed, initial encounter; Y92.129 Unspecified place in nursing home as the place of occurrence of the external cause; I10 Essential (primary) hypertension; F41.9 Anxiety disorder, unspecified; J44.9 Chronic obstructive pulmonary disease, unspecified; E88.09 Other disorders of plasma-protein metabolism, not elsewhere classified; M19.90 Unspecified osteoarthritis, unspecified site; E83.51 Hypocalcemia; Z79.899 Other long term (current) drug therapy; Z79.01 Long term (current) use of anticoagulants; Z79.51 Long term (current) use of inhaled steroids; Z79.82 Long term (current) use of aspirin; Z91.148 Patient's other noncompliance with medication regimen for other reason; F29 Unspecified psychosis not due to a substance or known physiological condition
CPT/HCPCS: 36415; 70450-TC; 71045-TC; 72170-TC; 80048-TC; 80076-TC; 82962-TC; 83735-TC; 83880; 84100-TC; 84484-TC; 85025-TC; 87081-TC; 94760-TC; 94799-TC; G0378; J7030; Q0163